=== PATIENT | male | born 1930 | race African-American/Black ===

== ENCOUNTER 2016-07-07 14:09 | Inpatient (IN) ==
[2016-07-07 14:44] LABS: Basophils % 0.1 % (0.0-0.8); Eosinophils % 0.1 % (0.00-10.9); Hemoglobin 14.8 GM/DL (14.0-18.0); Immature Granulocytes % 0.9 %; Immature Granulocytes Absolute 0.11 #; Lymphocytes # 0.6 10*3/uL (1.4-4.0); Lymphocytes % 4.4 % (21.2-54.2); Mean Corpuscular HGB Conc 30.8 GM/DL (32-36); Mean Corpuscular Hemoglobin 29 PG (27-34); Mean Corpuscular Volume 93.6 FL (87-102); Mean Platelet Volume 12.8 FL (9.6-12.0); Monocytes % 7.9 % (1.7-12.7); Neutrophils # 10.9 10*3/uL (1.4-7.4); Neutrophils % 86.6 % (38.7-73.9); Platelet Count 131 T/CUMM (130-400); Red Blood Count 5.13 MC/CUMM (3.8-5.5); Red Cell Distribution Width 15.9 % (9.3-17.3); White Blood Count 12.6 T/CUMM (4-12)
--- NOTE | 2016-07-07 14:52 | XRay Report ---
Referring Physician: Kirill Kenny Exam: XR chest 1V portable Date: July 07, 2016 at 2:33 PM Reason: Altered mental status Comparison: None Findings: The cardiac silhouette is normal in size, but the thoracic aorta is tortuous. No focal consolidation, pneumothorax or pleural effusion is identified. No acute osseous process is seen. Impression: No acute cardiopulmonary process is identified. PROCEDURE INTERPRETED AT [facility] DEPARTMENT OF RADIOLOGY Final Report Signed by: Dr. Mitchell Seth
[2016-07-07 14:55] LABS: Alanine Aminotransferase 33 U/L (16-61); Albumin 2.8 G/DL (3.4-5.0); Alkaline Phosphatase 104 U/L (45-117); Aspartate Amino Transferase 36 U/L (0-37); Blood Urea Nitrogen 83 MG/DL (7-18); Glucose 102 MG/DL (74-106); Magnesium 3.1 MG/DL (1.8-2.4); Osmolality,Calculated 353.6 MOS/KG (273-304); Potassium 3.7 MMOL/L (3.5-5.1); Total Protein 6.5 G/DL (6.4-8.3)
--- NOTE | 2016-07-07 14:55 | CT Report ---
History mental status changes, altered LOC There is diffuse atrophy. There is large amount of patchy and more confluent white matter low densities present with patchy low densities and chronic lacunes in the basal ganglia There is a 1 cm round low density in the left side of the samina. No acute intracranial hemorrhage or mass effect seen No acute cortical stroke identified Impression: 1. Large amount of chronic microvascular ischemic changes 2. Prominent diffuse atrophy. 3. 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 Clinical correlation requested The CT exam was performed using one or more of the following dose reduction techniques: Automated exposure control, adjustment of the mA and/or kV according to patient size, or use of iterative reconstruction technique. PROCEDURE INTERPRETED AT [facility] DEPARTMENT OF RADIOLOGY Final Report Signed by: Dr. Torri Wong
[2016-07-07 14:57] LABS: Sodium 167 MMOL/L (136-145)
[2016-07-07] MEDS ORDERED: SODIUM CHLORIDE 0.45% 1,000 ML IV ONE (15:01)
[2016-07-07 15:06] LABS: Apearance,Urine Slightly Hazy (Clear); Bacteria,Urine Occasional /HPF (Few); Bilirubin,Urine Negative (Negative); Blood, Urine Moderate mg/dL (Negative); Glucose,Urine (UA) Negative (Negative); Hyaline Casts,Urine 8 /LPF (0-3); Ketones,Urine Negative (Negative); Mucus,Urine Occasional /LPF (Occasional); Nitrite,Urine Negative (Negative); Protein,Urine Negative; RBC,Urine 29 /HPF (0-4); Squamous Epithelial Cell,Urine Occasional /HPF (0-10); Urine Color Amber (Yellow); Urine Specific Gravity 1.021 (1.001-1.035); WBC,Urine 3 /HPF (0-6)
[2016-07-07] MEDS ORDERED: ACETAMINOPHEN 325 MG TABLET PO PRN (15:06)
[2016-07-07] MEDS ORDERED: ONDANSETRON 4 MG/2 ML VIAL IV PRN (15:06)
[2016-07-07] MEDS ORDERED: DOCUSATE SODIUM 100 MG CAPSULE PO PRN (15:06)
--- NOTE | 2016-07-07 15:06 | Emergency Department Note ---
Oleksandr York Brooke, am scribing for, and in the presence of, Kirill Kenny MD 14:26. Zoya York Phillip K, MD, personally performed the services described in this documentation, ascribed by Arelis Leggett in my presence, and it is both accurate and complete 506 . Arrival - Arrival Chief Complaint: Altered Mental Status Stated Complaint: DECREASE PO INTAKE ED Nursing Triage Note: PT COMES FROM HOME WITH AMS AND SEVERE DEHYDRATION. PT HAS 4+ SKIN TENTING. PT QUIT EATING AND DRINKING SEVERAL DAYS AGO. PT REC'D ONE LITER NS BONUS CLERK PER EMS. PT HAS HX OF ALZHEIMERS Mode of Arrival: Stretcher Limitations: No Limitations Source: Patient, Family, RN Notes Reviewed Time Seen by Provider: 07/07/16 14:14 - History of Present Illness HPI Narrative: Patient is a 85 year old male brought into the ED by EMS with c/o altered mental status. Patient is a poor historian. Family says Patient will not respond to anything that she asks him to do. Family says Patient stopped talking about a week ago. She says he quit eating about two weeks ago and quit drinking about a week ago. She says he does not walk and sits in the recliner. Patient wears depends because he will not get up to go to the bathroom. Family denies Patient having any fever, vomiting, or diarrhea but has had a cough. Family says Patient does not have a history of CVA. She says its been a while since he was last hospitalized. She says he did recently go to the [facility] for seizures. Patient has PMHx of HTN and dementia. His Primary Care Provider is Dr. Phillips which is located at the [facility] in [place]. Onset (ago): week(s) Allergies/Adverse Reactions: Allergies Allergy/AdvReac Type Severity Reaction Status Date / Time No Known Allergies Allergy Unverified 08/11/14 21:28 Home Medications: Home Medications Medication Instructions Recorded Confirmed Type Unable To Obtain [Unable to Obtain] 08/11/14 08/11/14 History Review of System - Review of System ROS unobtainable: due to mental status 12 point system: reviewed and no additional remarkable complaints except as stated - Review of System Constitutional: Present: other (quit eating and drinking). Absent: fever Respiratory: Present: cough. Absent: respiratory distress Gastrointestinal: Absent: vomiting, diarrhea Skin: Absent: rash Neurological: Present: other (Patient not talking or following commands.) Medical,Surgical,& Family Hx - Medical History Cardio: History of: Hypertension Neurology: History of: Dementia - Social History Smoking Status: Unknown if ever smoked Exam Vital Signs: Vital Signs Temperature 97.1 F L 07/07/16 14:19 Pulse Rate 103 H 07/07/16 14:19 Respiratory Rate 16 07/07/16 14:19 Blood Pressure 103/71 07/07/16 14:19 O2 Sat by Pulse Oximetry 94 L 07/07/16 14:17 - General Exam limited due to: other (Not talking) General appearance: alert, in no apparent distress - Head Head exam: Present: atraumatic, normocephalic - Eye Eye exam: Present: normal appearance, PERRL, EOMI - ENT ENT exam: Present: normal exam - Neck Neck exam: Present: normal inspection - Chest Chest inspection: Present: normal inspection, symmetric chest wall rise - Respiratory Respiratory exam: Present: normal lung sounds bilaterally - Cardiovascular Cardiovascular exam: Present: normal rhythm, tachycardia, normal heart sounds - Abdominal Exam Abdominal exam: Present: soft, normal bowel sounds. Absent: distention, tenderness - Extremities Exam Extremities exam: Present: normal inspection - Back Exam Back exam: Present: normal inspection - Neurological Exam Neurological exam: Present: alert, other (Weakness in both upper and lower extremities. Left stroke program coordinator weaker than right.). Absent: oriented X3 - Psychiatric Psychiatric exam: Present: normal affect, normal mood - Skin Skin exam: Present: warm, dry, intact, normal color Course Course Narrative: Patient discussed with the hospitalist. Results - Labs CBC & BMP: 07/07/16 14:20 07/07/16 14:20 Lab Results: I have reviewed the patients labs Labs: Laboratory Tests 07/07/16 07/07/16 14:20 14:20 WBC 12.6 H MCHC 30.8 L MPV 12.8 H Neut % (Auto) 86.6 H Lymph % (Auto) 4.4 L Neut # (Auto) 10.9 H Lymph # (Auto) 0.[address] [place] # (Auto) 1.0 H Sodium 167 H* Chloride 130 H BUN 83 H Creatinine 3.10 H BUN/Creatinine Ratio 26.00 H Calculated Osmolality 353.6 H Magnesium 3.1 H Total Bilirubin 1.30 H Troponin I 0.070 H Albumin 2.8 L Globulin 3.7 H Albumin/Globulin Ratio 0.7 L - Diagnostic Findings Procedure: Chest x-ray: report reviewed by me (No acute cardiopulmonary process is identified.), CT: report reviewed by me (CT head/brain wo con: 1. Large amount of chronic microvascular ischemic changes. 2. Prominent diffuse atrophy. 3. 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 Clinical correlation requested.) Disposition Clinical Impression: Hypernatremia, Dehydration, Dementia, Cerebrovascular accident, old Case discussed with: patient's family Disposition: Still a Patient Condition: Guarded Additional Instructions: Admit to the hospitalist.
[2016-07-07] MEDS ORDERED: PANTOPRAZOLE 40 MG TABLET PO SCH (15:30)
--- NOTE | 2016-07-07 15:36 | Hospitalist History & Physical ---
Assessment and Plan - Time spent with patient Time spent with patient: Greater than 30 minutes (1) Encephalopathy Status: Acute Assessment and plan: Patient has metabolic encephalopathy secondary to his dehydration and hypernatremia. Will correct hypernatremia and volume resuscitate as noted below and follow his neuro status closely. We will have swallowing evaluation when he is cooperative prior to initiating a diet. Current Visit: Yes (2) Dehydration Status: Acute Assessment and plan: We will hydrate and correct sodium as noted. Current Visit: Yes (3) Hypernatremia Status: Acute Assessment and plan: Patient is severely hypernatremic secondary to volume contraction. We will volume resuscitate and then provide free water with correction of his sodium approximately 10 mEq/L during a 24-hour period. I am discontinuing his thiazide diuretics. Current Visit: Yes (4) Acute renal failure Status: Acute Assessment and plan: Patient is in acute renal failure likely secondary to volume contraction. Last creatinine noted in 2014 was 1.0. We will hydrate and correct electrolytes and follow his renal function closely. Current Visit: Yes (5) Seizure disorder Status: Chronic Assessment and plan: Patient has history of seizures controlled on Keppra. Will convert his Keppra to IV until his mental status allows us to convert back p.o. Current Visit: Yes (6) Dementia Status: Chronic Assessment and plan: Patient has a history of dementia. Continue his current medical regimen. Of note he was recently taken off his dementia meds, reason unknown at this time. Current Visit: Yes (7) Cerebrovascular accident, old Status: Acute Current Visit: Yes History of Present Illness Chief complaint: Not eating or drinking History of present illness: Mr. Mcfadden is a 85 year old -[place] male who lives with his niece in [place], with a history of hypertension, hyperlipidemia, dementia, seizure disorder who has not been eating or drinking over the past 4-5 days. His sister -in-law who is currently with him states that he is been fairly sedentary during this time either in bed or in a recliner. He does have underlying dementia and is baseline confusion and is not always cooperative however is been fairly lethargic over the past several days. There is no history from his family of fever, chills, chest pain, shortness breath, abdominal pain, nausea, vomiting, diarrhea, constipation, melena, hematochezia, hematemesis, dysuria, hematuria, urinary frequency urgency or incontinence. There has been no witnessed seizure activity in some time now. Further review of systems is otherwise unobtainable from the patient. Past medical history, past surgical history, social history, family history father comes from the old record or from his [id number]. His primary care provider [facility] in [place]. Home Medications Medication Instructions Recorded Confirmed Type Aspirin EC Tab 81 mg PO QAM 07/07/16 07/07/16 History Citalopram Hydrobromide 20 mg PO QAM 07/07/16 07/07/16 History [Citalopram HBr] Tamsulosin HCl [Tamsulosin HCl] 0.4 mg PO QPM 07/07/16 07/07/16 History Triamterene/Hydrochlorothiazid 0.5 each PO QAM 07/07/16 07/07/16 History [Triamterene-Hctz 37.5-25 mg Cp] levETIRAcetam [Levetiracetam] 500 mg PO BID 07/07/16 07/07/16 History Allergies Allergy/AdvReac Type Severity Reaction Status Date / Time No Known Allergies Allergy Unverified 08/11/14 21:28 Medical,Surgical,& Family Hx - Medical History Cardio: History of: Hypertension Neurology: History of: Dementia Endocrine: History of: Dyslipidemia - Surgical History Surgical History: noncontributory - Family History Family History: Denies;: Family Heart Disease - Social History Smoking Status: Unknown if ever smoked Frequency of Alcohol Use: None Type of Drug Use: None Marital Status: Single Lives With:: Niece ROS unobtainable: due to mental status 12 point system: reviewed and no additional remarkable complaints except as stated Exam - Constitutional General appearance: no acute distress - Head Head exam: Present: normocephalic, atraumatic - Eye Eye exam: Present: EOMI Pupils: Present: KARLO - ENT ENT exam: Present: other (Oral oropharynx is extremely dry) - Neck Neck exam: Present: normal inspection. Absent: lymphadenopathy, meningismus, tenderness, thyromegaly - Respiratory Respiratory exam: Present: clear to auscultation bilaterally. Absent: rales, rhonchi, wheezes - Cardiovascular Cardiovascular exam: Present: regular rate and rhythm. Absent: gallop, JVD, systolic murmur, tachycardia - GI/Abdominal GI/Abdominal exam: Present: normal bowel sounds, soft. Absent: distended, mass , tenderness, rebound - Extremities Exam Extremities exam: Absent: calf tenderness, edema - Back Exam Back exam: Present: normal inspection - Neurological Exam Neurological exam: Present: CN II-XII intact, other (He is lethargic, does not respond to verbal commands but does spontaneously move all extremities) - Psychiatric Psychiatric exam: Present: other (Lethargic, unresponsive to verbal command) - Skin Skin exam: Present: warm, dry, other (Poor skin turgor with significant tenting) . Absent: rash Results - Labs CBC & BMP: 07/07/16 14:20 07/07/16 14:20 Lab Results: I have reviewed the past 24 hour labs - EKG EKG shows: tachycardia, sinus rhythm - Diagnostic Findings Procedure: Chest x-ray: report reviewed by me, CT: report reviewed by me
[2016-07-07 15:43] LABS: Band Neutrophils 1 % (0-10); Lymphocytes 3 % (20-55); Segmented Neutrophils 92 % (50-85); Total Cells Counted 100
[2016-07-07 15:44] LABS: Burr Cells Few; Hypochromasia Slight; Platelet Estimate Decreased; Poikilocytosis Slight
[2016-07-07 15:45] LABS: Ammonia < 10 UMOL/L (11-32)
[2016-07-07] MEDS ORDERED: LORazepam 2 MG/1 ML VIAL IV PRN (15:49)
[2016-07-07] MEDS: PANTOPRAZOLE 40 MG VIAL IV SCH (18:57)
[2016-07-07] MEDS: ENOXAPARIN 30 MG/0.3 ML SYRINGE SUBCUT SCH (18:57)
[2016-07-07] MEDS: THIAMINE 200 MG/2 ML VIAL IV SCH (18:58)
[2016-07-07] MEDS: MULTIVITAMIN INJ 10 ML in DEXTROSE 5% 1,000 ML IV SCH (18:58)
[2016-07-07] MEDS: DEXTROSE 5% 1,000 ML IV SCH (20:51)
[2016-07-08 04:07] LABS: Basophils % 0.2 % (0.0-0.8); Eosinophils # 0.1 10*3/uL (0.0-0.87); Eosinophils % 1.2 % (0.00-10.9); Hematocrit 41.3 VOL% (42.0-52.0); Hemoglobin 12.6 GM/DL (14.0-18.0); Immature Granulocytes % 0.8 %; Immature Granulocytes Absolute 0.09 #; Lymphocytes % 8.8 % (21.2-54.2); Mean Corpuscular HGB Conc 30.5 GM/DL (32-36); Mean Corpuscular Hemoglobin 29 PG (27-34); Mean Corpuscular Volume 93.4 FL (87-102); Mean Platelet Volume 13.3 FL (9.6-12.0); Monocytes % 9.3 % (1.7-12.7); Neutrophils # 8.8 10*3/uL (1.4-7.4); Neutrophils % 79.7 % (38.7-73.9); Platelet Count 85 T/CUMM (130-400); Red Blood Count 4.42 MC/CUMM (3.8-5.5); Red Cell Distribution Width 15.8 % (9.3-17.3); White Blood Count 11.1 T/CUMM (4-12)
[2016-07-08 04:30] LABS: Albumin 2.4 G/DL (3.4-5.0); Bilirubin,Total 1.2 MG/DL (0.2-1.0); Calcium 8.4 MG/DL (8.5-10.1); Magnesium 2.9 MG/DL (1.8-2.4); Osmolality,Calculated 340.5 MOS/KG (273-304); Potassium 3.7 MMOL/L (3.5-5.1); Total Protein 5.8 G/DL (6.4-8.3)
[2016-07-08] MEDS: DEXTROSE 5% 1,000 ML IV SCH ×2 (05:33→17:53)
--- NOTE | 2016-07-08 07:28 | EKG Report ---
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
--- NOTE | 2016-07-08 08:48 | EKG Report ---
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
[2016-07-08] MEDS: PANTOPRAZOLE 40 MG VIAL IV SCH (08:55)
[2016-07-08] MEDS: THIAMINE 200 MG/2 ML VIAL IV SCH (08:59)
--- NOTE | 2016-07-08 09:25 | Hospitalist Progress Note ---
<Christie Pavon - Last Filed: 07/08/16 09:22> Assessment and Plan - Time spent with patient Time spent with patient: Less than 30 minutes (1) Hypernatremia Status: Acute Assessment and plan: pts NA is being corrected slowly. this am it is 161. cont w D5 at 100. this was most likely from severe dehydration. Current Visit: Yes (2) Dehydration Status: Acute Assessment and plan: dehydration causing hypernatremia which is slowly correcting w ivf Current Visit: Yes (3) Dementia Status: Chronic Assessment and plan: will continue his meds when he awakens further. for now iv meds have been ordered prn. Current Visit: Yes (4) Acute renal failure Status: Acute Assessment and plan: his renal failure most likely from dehydration. his creatinine is now 2.4. unsure of his baseline. cont gentle hydration. Current Visit: Yes (5) Seizure disorder Status: Chronic Assessment and plan: cont iv keppra until pt wakes up further and can take his po. Current Visit: Yes (6) Encephalopathy Status: Acute Assessment and plan: metabolic encephalopathy due to dehydration causing hypernatremia and acute renal failure. pt does have dementia as well. will cont to correct his Na slowly and renal failure should improve as well. once pt is more alert, will get him a diet. this has been discussed w dr dc. further recommendations to follow. Current Visit: Yes Hospitalist: Subjective Interval history: pt is sleeping soundly. will not open his eyes or converse but he will follow simple commands. his nephew is in the room and I spoke w another nephew on the phone. pt is a and requires 24h care at home. [facility] Exam - Constitutional Vitals: Period Temp Pulse Resp BP Sys/Mcneal Pulse Ox Last 24 Hr 97.8 F-99.0 F 89-97 14-20 98-124/48-71 91-100 Exam: 85AAM, thin, sleepy but will follow simple commands nephew in room chest clear cv rrr abd scaphoid, nt ext no edema Results - Labs CBC & BMP: 07/08/16 03:40 07/08/16 03:40 Lab Results: I have reviewed the past 24 hour labs <Hernesto Dc Jr. - Last Filed: 07/08/16 21:08> Assessment and Plan (1) Hypernatremia Status: Acute Assessment and plan: Continue with IV fluids. BMP in a.m. Current Visit: Yes (2) Dehydration Status: Acute Current Visit: Yes (3) Dementia Status: Chronic Current Visit: Yes (4) Cerebrovascular accident, old Status: Acute Current Visit: Yes (5) Acute renal failure Status: Acute Current Visit: Yes Hospitalist: Subjective Interval history: At this time continuing with current management for this patient. Exam - Constitutional Vitals: Period Temp Pulse Resp BP Sys/Mcneal Pulse Ox Last 24 Hr 98.2 F-99.0 F 68-95 12-20 98-120/48-77 93-96 Results - Labs CBC & BMP: 07/08/16 03:40 07/08/16 03:40
[2016-07-08] MEDS: MULTIVITAMIN INJ 10 ML in DEXTROSE 5% 1,000 ML IV SCH (16:59)
[2016-07-08] MEDS: ENOXAPARIN 30 MG/0.3 ML SYRINGE SUBCUT SCH (17:00)
[2016-07-09] MEDS: DEXTROSE 5% 1,000 ML IV SCH ×3 (00:20→20:20)
[2016-07-09 04:18] LABS: Calcium 8.4 MG/DL (8.5-10.1); Osmolality,Calculated 319.3 MOS/KG (273-304); Potassium 3.5 MMOL/L (3.5-5.1)
[2016-07-09] MEDS: PANTOPRAZOLE 40 MG VIAL IV SCH (09:18)
[2016-07-09] MEDS: THIAMINE 200 MG/2 ML VIAL IV SCH (09:20)
--- NOTE | 2016-07-09 09:45 | Hospitalist Progress Note ---
Assessment and Plan (1) Hypernatremia Status: Acute Assessment and plan: pts NA is being corrected slowly. this am it is 161. cont w D5 at 100. this was most likely from severe dehydration. 07/09/2016 patient's sodium is being corrected slowly. It is now down to 155 from 161 yesterday he is on D5 at 100. Continue this. Current Visit: Yes (2) Dehydration Status: Acute Assessment and plan: dehydration causing hypernatremia which is slowly correcting w ivf 07/09/2016 hypernatremia and elevated creatinine due to dehydration. Patient is slowly being corrected with sodium at 155 and creatinine down to 1.7 today. We will go ahead and start tube feeds since patient is not waking up enough to eat. Current Visit: Yes (3) Dementia Status: Chronic Assessment and plan: will continue his meds when he awakens further. for now iv meds have been ordered prn. Current Visit: Yes (4) Acute renal failure Status: Acute Assessment and plan: his renal failure most likely from dehydration. his creatinine is now 2.4. unsure of his baseline. cont gentle hydration. Patient's renal failure is improving. His creatinine is down to 1.7 today from 2.4 yesterday. We will continue to give patient D5 at 100 mils per hour. Current Visit: Yes (5) Seizure disorder Status: Chronic Assessment and plan: cont iv keppra until pt wakes up further and can take his po. Current Visit: Yes (6) Encephalopathy Status: Acute Assessment and plan: metabolic encephalopathy due to dehydration causing hypernatremia and acute renal failure. pt does have dementia as well. will cont to correct his Na slowly and renal failure should improve as well. once pt is more alert, will get him a diet. this has been discussed w dr dc. further recommendations to follow. 07/09/2016 patient has metabolic encephalopathy due to dehydration causing hypernatremia and acute renal failure. Patient does have dementia at his baseline from family members seems to be awake and alert and conversive at times. His sodium is slowly decreasing and his creatinine is slowly improving. Will initiate tube feeds today since patient is not taking anything p.o. in a while. We will recheck his labs in the morning. This is all been discussed with Dr. Dc. Further recommendations to follow Current Visit: Yes Hospitalist: Subjective Interval history: Patient is lying in bed and still sleepy. He will respond to verbal and tactile stimuli. He is trying to moan but I cant understand him and he will not open his eyes. Family is present and says that his baseline is awake and somewhat conversive at times. Exam - Constitutional Vitals: Period Temp Pulse Resp BP Sys/Mcneal Pulse Ox Last 24 Hr 98.2 F-99.4 F 68-97 12-20 104-120/60-80 93-97 Exam: 85-year-old cachectic -[place] male, sleepy and lethargic. Family member is present Chest clear CV regular rate and rhythm Abdomen scaphoid nontender Extremities with no edema Results - Labs CBC & BMP: 07/08/16 03:40 07/09/16 03:33 Lab Results: I have reviewed the past 24 hour labs
[2016-07-09] MEDS: ENOXAPARIN 40 MG/0.4 ML SYRINGE SUBCUT SCH (16:11)
[2016-07-09] MEDS: MULTIVITAMIN INJ 10 ML in DEXTROSE 5% 1,000 ML IV SCH (16:12)
[2016-07-10] MEDS: DEXTROSE 5% 1,000 ML IV SCH ×2 (06:33→17:15)
[2016-07-10 06:50] LABS: Basophils % 0.2 % (0.0-0.8); Eosinophils # 0.3 10*3/uL (0.0-0.87); Eosinophils % 4.1 % (0.00-10.9); Hematocrit 46.1 VOL% (42.0-52.0); Hemoglobin 14.8 GM/DL (14.0-18.0); Immature Granulocytes % 1.6 %; Lymphocytes # 1.1 10*3/uL (1.4-4.0); Lymphocytes % 16.6 % (21.2-54.2); Mean Corpuscular HGB Conc 32.1 GM/DL (32-36); Mean Corpuscular Hemoglobin 29 PG (27-34); Mean Corpuscular Volume 89.9 FL (87-102); Mean Platelet Volume 13.2 FL (9.6-12.0); Monocytes # 0.7 10*3/uL (0.11-0.8); Monocytes % 10.4 % (1.7-12.7); Neutrophils # 4.2 10*3/uL (1.4-7.4); Neutrophils % 67.1 % (38.7-73.9); Platelet Count 73 T/CUMM (130-400); Red Blood Count 5.13 MC/CUMM (3.8-5.5); Red Cell Distribution Width 15.1 % (9.3-17.3); White Blood Count 6.3 T/CUMM (4-12)
[2016-07-10 07:10] LABS: Calcium 7.9 MG/DL (8.5-10.1); Magnesium 2.4 MG/DL (1.8-2.4); Osmolality,Calculated 304.9 MOS/KG (273-304); Potassium 3.5 MMOL/L (3.5-5.1)
[2016-07-10 07:12] LABS: Eosinophils 1 % (0-10); Lymphocytes 14 % (20-55); Platelet Estimate Decreased; Polychromasia Slight; Segmented Neutrophils 82 % (50-85); Total Cells Counted 100
[2016-07-10] MEDS: PANTOPRAZOLE 40 MG VIAL IV SCH (08:32)
[2016-07-10] MEDS: THIAMINE 200 MG/2 ML VIAL IV SCH (08:33)
--- NOTE | 2016-07-10 11:56 | XRay Report ---
XR chest 1V portable Indication: Feeding tube placement. Chest one view: NG tube extends to left upper quadrant, tip directed towards the gastric fundus. Consider advancing 3-4 additional centimeters. The sidehole is below the GE junction. Impression: Nasogastric tube position as described. PROCEDURE INTERPRETED AT [facility] DEPARTMENT OF RADIOLOGY Final Report Signed by: Linus Guthrie M.D.
--- NOTE | 2016-07-10 15:25 | Hospitalist Progress Note ---
Assessment and Plan (1) Hypernatremia Status: Acute Assessment and plan: Continue hypotonic IV fluids and free water through NG tube. Current Visit: Yes (2) Dehydration Status: Acute Assessment and plan: Improving with IV fluids Current Visit: Yes (3) Dementia Status: Chronic Current Visit: Yes Qualifiers: Dementia type: Alzheimer's disease Alzheimer's disease onset: unspecified onset Dementia behavioral disturbance: without behavioral disturbance Qualified Code(s): G30.9 - Alzheimer's disease, unspecified; F02.80 - Dementia in other diseases classified elsewhere without behavioral disturbance (4) Acute renal failure Status: Acute Assessment and plan: Improving with IV fluids and volume replacement Current Visit: Yes Qualifiers: Acute renal failure type: unspecified Qualified Code(s): N17.9 - Acute kidney failure, unspecified (5) Encephalopathy Status: Acute Assessment and plan: Metabolic encephalopathy related to acute renal failure and hypernatremia. Current Visit: Yes Hospitalist: Subjective Interval history: Patient seen and examined. Family friend/neighbor at the bedside. Patient had NG tube placed today for nutrition and free water administration. KUB confirms placement. Patient still looks very dehydrated. His sodium is coming down. Exam - Constitutional Vitals: Period Temp Pulse Resp BP Sys/Mcneal Pulse Ox Last 24 Hr 98 F-99.9 F 76-84 18-20 91-131/43-66 96-99 Exam: Constitutional System: Mild distress. No tremulousness. Head: Normocephalic, atraumatic. Ears, Nose and Throat System: No pain or tenderness. No epistaxis or discharge. Mucous membranes dry Eyes System: Pupils equal, round, and reactive. Extraocular muscles intact. Neck: Supple, without adenopathy, No jugular venous distention. No thyromegaly, neck mass, or prior surgery apparent. Respiratory System: Chest clear to auscultation. Cardiovascular System: Heart with regular rate and rhythm. No murmur. GI System: Abdomen soft, nontender. Normo active bowel sounds present. Musculoskeletal System: limbs with no pedal edema. Full distal pulses. Neurological System: No discernable sensory deficit. No aphasia Psychiatric System: Conversation is rational Results - Labs CBC & BMP: 07/10/16 05:22 07/10/16 05:22 Lab Results: I have reviewed the past 24 hour labs
[2016-07-10] MEDS: MULTIVITAMIN INJ 10 ML in DEXTROSE 5% 1,000 ML IV SCH (17:13)
[2016-07-10] MEDS: ENOXAPARIN 40 MG/0.4 ML SYRINGE SUBCUT SCH (21:28)
[2016-07-11] MEDS: DEXTROSE 5% 1,000 ML IV SCH ×2 (04:38→13:04)
[2016-07-11 07:28] LABS: Calcium 7.6 MG/DL (8.5-10.1); Osmolality,Calculated 296.4 MOS/KG (273-304); Potassium 3.3 MMOL/L (3.5-5.1)
[2016-07-11 07:33] LABS: Magnesium 2.3 MG/DL (1.8-2.4); Phosphorous 2.4 MG/DL (2.5-4.9); Prealbumin 6.4 MG/DL (20-40)
[2016-07-11] MEDS: PANTOPRAZOLE 40 MG VIAL IV SCH (09:42)
[2016-07-11] MEDS: THIAMINE 200 MG/2 ML VIAL IV SCH (09:43)
[2016-07-11] MEDS: MULTIVITAMIN LIQUID (CENTRUM) 60 ML BOTTLE PEG SCH (10:11)
--- NOTE | 2016-07-11 10:40 | Hospitalist Progress Note ---
Assessment and Plan (1) Hypernatremia Status: Acute Assessment and plan: Continue hypotonic IV fluids and free water through NG tube. Current Visit: Yes (2) Dehydration Status: Acute Assessment and plan: Improving with IV fluids and free water flush Current Visit: Yes (3) Dementia Status: Chronic Current Visit: Yes Qualifiers: Dementia type: Alzheimer's disease Alzheimer's disease onset: unspecified onset Dementia behavioral disturbance: without behavioral disturbance Qualified Code(s): G30.9 - Alzheimer's disease, unspecified; F02.80 - Dementia in other diseases classified elsewhere without behavioral disturbance (4) Acute renal failure Status: Resolved Assessment and plan: Improving with IV fluids and volume replacement Current Visit: Yes Qualifiers: Acute renal failure type: unspecified Qualified Code(s): N17.9 - Acute kidney failure, unspecified (5) Encephalopathy Status: Acute Assessment and plan: Metabolic encephalopathy related to acute renal failure and hypernatremia. Current Visit: Yes Hospitalist: Subjective Interval history: Patient seen and examined. No acute events overnight. Family member at the bedside. Patient appears to be doing better today. Sodium down to 147. Creatinine normal. Potassium low and supplements ordered. Tube feeds initiated and patient tolerating well. Consult occupational therapy. Discharge planning for placement versus home with home health. Exam - Constitutional Vitals: Period Temp Pulse Resp BP Sys/Mcneal Pulse Ox Last 24 Hr 98.1 F-100.2 F 20-84 19-20 109-152/54-77 95-100 Exam: Constitutional System: Mild distress. No tremulousness. Head: Normocephalic, atraumatic. Ears, Nose and Throat System: No pain or tenderness. No epistaxis or discharge. Mucous membranes dry Eyes System: Pupils equal, round, and reactive. Extraocular muscles intact. Neck: Supple, without adenopathy, No jugular venous distention. No thyromegaly, neck mass, or prior surgery apparent. Respiratory System: Chest clear to auscultation. Cardiovascular System: Heart with regular rate and rhythm. No murmur. GI System: Abdomen soft, nontender. Normo active bowel sounds present. Musculoskeletal System: limbs with no pedal edema. Full distal pulses. Neurological System: No discernable sensory deficit. No aphasia Results - Labs CBC & BMP: 07/10/16 05:22 07/11/16 06:04 Lab Results: I have reviewed the past 24 hour labs
[2016-07-11] MEDS ORDERED: POTASSIUM CHLORIDE 20 MEQ/15 ML UDCUP PO ONE (12:00)
[2016-07-12] MEDS: ENOXAPARIN 40 MG/0.4 ML SYRINGE SUBCUT SCH (00:10)
[2016-07-12] MEDS: DEXTROSE 5% 1,000 ML IV SCH ×3 (02:12→02:13)
[2016-07-12 06:41] LABS: Calcium 7.7 MG/DL (8.5-10.1); Osmolality,Calculated 288.8 MOS/KG (273-304); Potassium 3.4 MMOL/L (3.5-5.1)
[2016-07-12] MEDS: THIAMINE 200 MG/2 ML VIAL IV SCH (09:12)
[2016-07-12] MEDS: MULTIVITAMIN LIQUID (CENTRUM) 60 ML BOTTLE PEG SCH (09:17)
[2016-07-12] MEDS: PANTOPRAZOLE 40 MG VIAL IV SCH (09:17)
--- NOTE | 2016-07-12 14:52 | Hospitalist Progress Note ---
Assessment and Plan (1) Hypernatremia Status: Acute Assessment and plan: Continue free water through NG tube along with TF Current Visit: Yes (2) Dehydration Status: Acute Assessment and plan: Improving with IV fluids and free water flush.- RESOLVED electrolytes and renal fxn have improved. Current Visit: Yes (3) Dementia Status: Chronic Current Visit: Yes Qualifiers: Dementia type: Alzheimer's disease Alzheimer's disease onset: unspecified onset Dementia behavioral disturbance: without behavioral disturbance Qualified Code(s): G30.9 - Alzheimer's disease, unspecified; F02.80 - Dementia in other diseases classified elsewhere without behavioral disturbance (4) Acute renal failure Status: Resolved Assessment and plan: Improving with IV fluids and volume replacement Current Visit: Yes Qualifiers: Acute renal failure type: unspecified Qualified Code(s): N17.9 - Acute kidney failure, unspecified (5) Encephalopathy Status: Acute Assessment and plan: Metabolic encephalopathy related to acute renal failure and hypernatremia. Current Visit: Yes Hospitalist: Subjective Interval history: Seen and examined. Sister in law at the bedside. We discussed the patient's long-term prognosis. His electrolyte have improved however his mental status has not. The patient has advanced stage dementia. He was nonverbal prior to admission and has not been eating or drinking well at home for the last several weeks leading to his dehydration and acute renal failure causing the admission. Consultation for gastroenterology has been placed for possible PEG tube placement. Exam - Constitutional Vitals: Period Temp Pulse Resp BP Sys/Mcneal Pulse Ox Last 24 Hr 98.6 F-100.2 F 75-87 15-22 103-142/52-66 91-100 General appearance: no acute distress Exam: Constitutional System: Mild distress. No tremulousness. Head: Normocephalic, atraumatic. Ears, Nose and Throat System: No pain or tenderness. No epistaxis or discharge. Mucous membranes dry Eyes System: Pupils equal, round, and reactive. Extraocular muscles intact. Neck: Supple, without adenopathy, No jugular venous distention. No thyromegaly, neck mass, or prior surgery apparent. Respiratory System: Chest clear to auscultation. Cardiovascular System: Heart with regular rate and rhythm. No murmur. GI System: Abdomen soft, nontender. Normo active bowel sounds present. Musculoskeletal System: limbs with no pedal edema. Full distal pulses. Neurological System: Opens eyes but does not follow commands. Results - Labs CBC & BMP: 07/10/16 05:22 07/12/16 05:30 Lab Results: I have reviewed the past 24 hour labs
[2016-07-12] MEDS ORDERED: POTASSIUM PHOSPHATE 15 MMOL in SODIUM CHLORIDE 0.9% 100 ML IV ONE (15:00)
--- NOTE | 2016-07-12 15:07 | Gastrointestinal Consult Note ---
<[place] Nation - Last Filed: 07/12/16 15:04> Assessment and Plan (1) Failure to thrive Status: Acute Assessment and plan: 07/12-Recent decline with refusal to eat/drink admitted with encephalopathy secondary to dehydration. Consult placed for possible PEG tube placement. Family to discuss and make decision to proceed prior to pt discharge to skilled facility. Plan and addendum to follow by Dr Mcdonough. Current Visit: Yes History of Present Illness Chief complaint: Failure to thrive History of present illness: Mr. Mcfadden is a 85 year old male who was admitted to the hospital with reports of refusal to eat or drink x several days. Pt is a poor historian. Information is obtained from sister in law at bedside and chart review. Pt lives at home with his niece however over the last several days he has refused to eat or drink anything. He has a history of seizure disorder, dementia and CVA in the past. Pt was mostly bed/chair bound prior to admission and required considerable assistance in his routine daily care. Over the last several days he is reported to have become more lethargic and uncooperative with family. He had no other reported complaints of prior to admission. Pt was brought to the ER and at that time found to have metabolic encephalopathy secondary to dehydration and hypernatremia. He has no known prior history of abdominal surgeries in the past. He is on no anticoagulant at this time. Home Medications Medication Instructions Recorded Confirmed Type Aspirin EC Tab 81 mg PO QAM 07/07/16 07/07/16 History Citalopram Hydrobromide 20 mg PO QAM 07/07/16 07/07/16 History [Citalopram HBr] Memantine [Namenda] 5 mg PO QAM 07/07/16 07/07/16 History Tamsulosin HCl [Tamsulosin HCl] 0.4 mg PO QPM 07/07/16 07/07/16 History Triamterene/Hydrochlorothiazid 0.5 each PO QAM 07/07/16 07/07/16 History [Triamterene-Hctz 37.5-25 mg Cp] levETIRAcetam [Levetiracetam] 500 mg PO BID 07/07/16 07/07/16 History Allergies Allergy/AdvReac Type Severity Reaction Status Date / Time No Known Allergies Allergy Unverified 08/11/14 21:28 Medical,Surgical,& Family Hx - Medical History Cardio: History of: Hypertension Psychological: History of: Depression Neurology: History of: Dementia, Seizures Endocrine: History of: Dyslipidemia Genitourinary: History of: Prostate Problems - Family History Family History: Denies;: Family Heart Disease - Social History Smoking Status: Unknown if ever smoked Frequency of Alcohol Use: None Type of Drug Use: None ROS unobtainable: due to mental status Exam - Constitutional Vitals: Period Temp Pulse Resp BP Sys/Mcneal Pulse Ox Last 24 Hr 98.6 F-100.2 F 75-87 15-22 103-142/52-66 91-100 General appearance: normal weight, no acute distress - Head Head exam: Present: normal inspection, normocephalic - Eye Eye exam: Present: other (lids and conjunctiva unremarakble). Absent: scleral icterus - ENT ENT exam: Present: normal exam, normal oropharynx - Neck Neck exam: Present: normal inspection - Respiratory Respiratory exam: Present: clear to auscultation bilaterally. Absent: rales, rhonchi, wheezes - Cardiovascular Cardiovascular exam: Present: regular rate and rhythm. Absent: diastolic murmur , JVD, systolic murmur - GI/Abdominal GI/Abdominal exam: Present: normal bowel sounds, soft. Absent: ascites, distended, mass, organomegaly, tenderness - Extremities Exam Extremities exam: Present: normal inspection, full ROM - Back Exam Back exam: Present: normal inspection - Neurological Exam Neurological exam: Present: alert, altered - Psychiatric Psychiatric exam: Present: other (lids and conjunctiva unremarkable) - Skin Skin exam: Present: normal color, warm, dry Results - Labs CBC & BMP: 07/10/16 05:22 07/12/16 05:30 Lab Results: I have reviewed the past 24 hour labs <Robbie Mcdonough - Last Filed: 07/12/16 18:34> History of Present Illness History of present illness: Mr. Mcfadden is a 85 year old male Exam - Constitutional Vitals: Period Temp Pulse Resp BP Sys/Mcneal Pulse Ox Last 24 Hr 98.6 F-100.2 F 75-87 15- 103-142/57-66 91-100 Results - Labs CBC & BMP: 07/10/16 05:22 07/12/16 05:30
[2016-07-13 08:01] LABS: Calcium 7.6 MG/DL (8.5-10.1); Osmolality,Calculated 293.6 MOS/KG (273-304); Potassium 3.7 MMOL/L (3.5-5.1)
[2016-07-13] MEDS: PANTOPRAZOLE 40 MG VIAL IV SCH (08:56)
[2016-07-13] MEDS: THIAMINE 200 MG/2 ML VIAL IV SCH (08:56)
[2016-07-13] MEDS: MULTIVITAMIN LIQUID (CENTRUM) 60 ML BOTTLE PEG SCH (08:57)
[2016-07-13] MEDS: SKIN HEALING OINT (AQUAPHOR) 50 GM TUBE TOP PRN (08:57)
--- NOTE | 2016-07-13 09:29 | Hospitalist Progress Note ---
Assessment and Plan (1) Hypernatremia Status: Acute Assessment and plan: Continue free water through NG tube along with TF. Resume D5W. Current Visit: Yes (2) Dehydration Status: Acute Assessment and plan: Improving with IV fluids and free water flush.- RESOLVED electrolytes and renal fxn have improved. PEG tube placement scheduled for tomorrow with Dr. Mcdonough. Current Visit: Yes (3) Dementia Status: Chronic Current Visit: Yes Qualifiers: Dementia type: Alzheimer's disease Alzheimer's disease onset: unspecified onset Dementia behavioral disturbance: without behavioral disturbance Qualified Code(s): G30.9 - Alzheimer's disease, unspecified; F02.80 - Dementia in other diseases classified elsewhere without behavioral disturbance (4) Acute renal failure Status: Resolved Assessment and plan: Improving with IV fluids and volume replacement Current Visit: Yes Qualifiers: Acute renal failure type: unspecified Qualified Code(s): N17.9 - Acute kidney failure, unspecified (5) Encephalopathy Status: Acute Assessment and plan: Metabolic encephalopathy related to acute renal failure and hypernatremia. Current Visit: Yes Hospitalist: Subjective Interval history: Patient seen and examined. No acute events overnight. PEG tube planned for tomorrow. Continue tube feedings. Resume IV fluids. N.p.o. after midnight. Plan for discharge home with family after PEG tube placement. Exam - Constitutional Vitals: Period Temp Pulse Resp BP Sys/Mcneal Pulse Ox Last 24 Hr 97.7 F-99.3 F 68-75 19-20 107-141/48-77 91-97 General appearance: no acute distress Exam: Constitutional System: Mild distress. No tremulousness. Head: Normocephalic, atraumatic. Ears, Nose and Throat System: No pain or tenderness. No epistaxis or discharge. Mucous membranes improved. Eyes System: Pupils equal, round, and reactive. Extraocular muscles intact. Neck: Supple, without adenopathy, No jugular venous distention. No thyromegaly, neck mass, or prior surgery apparent. Respiratory System: Chest clear to auscultation. Cardiovascular System: Heart with regular rate and rhythm. No murmur. GI System: Abdomen soft, nontender. Normo active bowel sounds present. Musculoskeletal System: limbs with no pedal edema. Full distal pulses. Neurological System: Opens eyes but does not follow commands. Results - Labs CBC & BMP: 07/10/16 05:22 07/13/16 06:59 Lab Results: I have reviewed the past 24 hour labs
--- NOTE | 2016-07-13 10:28 | Gastrointestinal Progress Note ---
<[place] - Last Filed: 07/13/16 10:24> Assessment and Plan (1) Failure to thrive Status: Acute Assessment and plan: 07/13-Family agrees to proceed with PEG placement. Will schedule this for tomorrow morning. Plan and addendum to follow by Dr Mcdonough. 07/12-Recent decline with refusal to eat/drink admitted with encephalopathy secondary to dehydration. Consult placed for possible PEG tube placement. Family to discuss and make decision to proceed prior to pt discharge to skilled facility. Plan and addendum to follow by Dr Mcdonough. Current Visit: Yes Gastroenterology - PN: Subj Interval history: CC: Failure to thrive Pt is seen awake, but does not respond to commands. Family at bedside. Family has agreed to proceed with PEG placement at this time. He has been tolerating her NG tube feedings well. Abdomen is soft, nontender. Will plan to proceed tomorrow morning. ROS: No acute distress Exam (Progress Note) - Constitutional Vitals: Period Temp Pulse Resp BP Sys/Mcneal Pulse Ox Last 24 Hr 97.7 F-99.3 F 68-75 19-20 107-141/48-77 91-97 General appearance: normal weight, no acute distress - Head Head exam: Present: normal inspection, normocephalic - Eye Eye exam: Present: other (lids and conjuncitva unremarkable). Absent: scleral icterus - ENT ENT exam: Present: normal exam, normal oropharynx - Neck Neck exam: Present: normal inspection - Respiratory Respiratory exam: Present: clear to auscultation bilaterally. Absent: rales, rhonchi, wheezes - Cardiovascular Cardiovascular exam: Present: regular rate and rhythm. Absent: diastolic murmur , JVD, systolic murmur - GI/Abdominal GI/Abdominal exam: Present: normal bowel sounds, soft. Absent: ascites, distended, mass, organomegaly, tenderness - Extremities Exam Extremities exam: Present: normal inspection, full ROM - Back Exam Back exam: Present: normal inspection - Neurological Exam Neurological exam: Present: alert, altered - Psychiatric Psychiatric exam: Present: normal affect, normal mood - Skin Skin exam: Present: normal color, warm, dry Results - Labs CBC & BMP: 07/10/16 05:22 07/13/16 06:59 Lab Results: I have reviewed the past 24 hour labs <Robbie Mcdonough - Last Filed: 07/13/16 19:16> Exam (Progress Note) - Constitutional Vitals: Period Temp Pulse Resp BP Sys/Mcneal Pulse Ox Last 24 Hr 96.6 F-99.3 F 63-76 16-22 104-133/46-76 94-98 Results - Labs CBC & BMP: 07/10/16 05:22 07/13/16 06:59
[2016-07-13] MEDS: DEXTROSE 5% 1,000 ML IV SCH (10:49)
--- NOTE | 2016-07-13 12:35 | Discharge Summary ---
Hospital Course - Hospital Course Hospital Course: Mr. Mcfadden is an 85-year-old male who was admitted to the hospital with hypernatremia and dehydration, acute renal failure and advanced dementia with metabolic encephalopathy. He lives with his niece in [place], with a history of hypertension, hyperlipidemia, dementia, seizure disorder who has not been eating or drinking over the past 4-5 days. His [id number] who is currently with him states that he is been fairly sedentary during this time either in bed or in a recliner. He does have underlying dementia and is baseline confusion and is not always cooperative however is been fairly lethargic over the past several days. There is no history from his family of fever, chills, chest pain , shortness breath, abdominal pain, nausea, vomiting, diarrhea, constipation, melena, hematochezia, hematemesis, dysuria, hematuria, urinary frequency urgency or incontinence. There has been no witnessed seizure activity in some time now. Further review of systems is otherwise unobtainable from the patient. Past medical history, past surgical history, social history, family history father comes from the old record or from his [id number]. [facility] [place]. He was admitted to the hospitalist service for IV fluids and nutrition via NG tube. His electrolytes improved and his renal function returned to normal. His end-stage dementia and metabolic encephalopathy are not improved significantly. A PEG tube placement was attempted by GI however was unsuccessful and a general surgery consult was placed. The patient was noted to have a high riding stomach. Dr. Moran saw the patient and placed a gastrostomy tube in the operating room. The patient tolerated the procedure well. He is currently receiving tube feeds through it. The patient has reached maximal benefit from this inpatient hospitalization and is being discharged home in the care of family members. They plan to take him home to a family member's house in [place]. He is awaiting [facility]. He remains a full code. - Time spent with patient Time with patient DS: Greater than 30 minutes (Total discharge time for this patient, including [id number] time, clinical documentation, medication reconciliation, and discharge planning was 42 minutes.) Diagnosis - Discharge Diagnosis (1) Hypernatremia Status: Resolved (2) Dehydration Status: Resolved (3) Dementia Status: Chronic (4) Acute renal failure Status: Resolved (5) Encephalopathy Status: Acute (6) Status post insertion of percutaneous endoscopic gastrostomy (PEG) tube Status: Acute Specialty Discharge - Follow Up or Referrals Follow up with: Darrian Verma MD [Physician] - 2 Weeks (Call office in am to make 2 week follow- up appointment for staple removal) Discharge Plan - Discharge Data Disposition: Home Health Service Condition at Discharge: Stable Discharge Diet: other (tube feeds) Activity: as per physical therapy Hygiene: no restrictions Contact your physician if you experience:: fever over 101, Nausea/Vomiting, Shortness of breath, Bleeding - Discharge Medications New Multivitamin Liquid (Centrum) [Centrum Liquid] 15 ml PEG DAILY bottle Continue Aspirin EC Tab 81 mg PO QAM Citalopram Hydrobromide [Citalopram HBr] 20 mg PO QAM levETIRAcetam [Levetiracetam] 500 mg PO BID Memantine [Namenda] 5 mg PO QAM Tamsulosin HCl 0.4 mg PO QPM Discontinued Triamterene/Hydrochlorothiazid [Triamterene-Hctz 37.5-25 mg Cp] 0.5 each PO QAM - Follow Up or Referral Follow Up: Darrian Verma MD [Physician] - 2 Weeks (Call office in am to make 2 week follow- up appointment for staple removal) - Forms/Instructions Exam - Constitutional Vitals: Period Temp Pulse Resp BP Sys/Mcneal Pulse Ox Last 24 Hr 97.7 F-99.3 F 63-75 19-22 107-141/46-77 94-98 Discharge Results Procedures and tests throughout hospitalization: Pending Orders 07/14/16 04:00 BMP [Basic Metabolic Panel] IN AM CBC [Comp Blood Count Auto Diff] IN AM Prothrombin Time INR IN AM Labs on day of discharge: Labs from last 24 hours 07/13/16 06:59 Sodium 146 H Potassium 3.7 Chloride 111 H Carbon Dioxide 26 Anion Gap 12.7 BUN 22 H Creatinine 1.30 GFR Calculation 59 BUN/Creatinine Ratio 16.00 Glucose 117 H Calculated Osmolality 293.6 Calcium 7.6 L DS: Provider Date of admission: 07/07/16 15:06 Primary care physician: . No PCP Attending physician on admission: Carolina Tate MD Consults: 07/07/16 15:16 Consult to Pharmacy [CONS] Routine Reason for Pharmacy Consult: Adjust Meds Renal Funct 07/07/16 18:17 Consult to Dietitian [CONS] Routine Reason for Dietitian: Other 07/09/16 09:44 Consult to Case Mgmt/Social Srvs [CONS] Routine Reason for Case Mgmt/Social Srvs: Swingbed/SNF/Skilled Nursing Consult Comment: [facility] 07/09/16 09:47 Consult to Dietitian [CONS] Routine Reason for Dietitian: TF-Initiate/Manage 07/11/16 10:37 Consult to Occupational Therapy [CONS] Routine Reason for Occupational Therapy: Evaluate and Treat Start Therapy: Tomorrow 07/12/16 14:55 Consult to Physician [CONS] Routine Comment: PEG tube placement Consulting Provider: Robbie Mcdonough Discharging clinician: Carolina Tate MD Expected date of discharge: 07/16/16
[2016-07-14 03:40] LABS: Basophils % 0.3 % (0.0-0.8); Eosinophils # 0.3 10*3/uL (0.0-0.87); Eosinophils % 4.4 % (0.00-10.9); Hematocrit 30.5 VOL% (42.0-52.0); Hemoglobin 10.2 GM/DL (14.0-18.0); Immature Granulocytes % 1.5 %; Lymphocytes % 14.7 % (21.2-54.2); Mean Corpuscular HGB Conc 33.4 GM/DL (32-36); Mean Corpuscular Hemoglobin 29 PG (27-34); Mean Corpuscular Volume 85.9 FL (87-102); Mean Platelet Volume 12.7 FL (9.6-12.0); Monocytes # 0.8 10*3/uL (0.11-0.8); Monocytes % 11.6 % (1.7-12.7); Neutrophils # 4.4 10*3/uL (1.4-7.4); Neutrophils % 67.5 % (38.7-73.9); Platelet Count 217 T/CUMM (130-400); Red Blood Count 3.55 MC/CUMM (3.8-5.5); Red Cell Distribution Width 15.1 % (9.3-17.3); White Blood Count 6.5 T/CUMM (4-12)
[2016-07-14 03:48] LABS: INR 1.1; PT Patient Result 11.3 SECS
[2016-07-14 04:10] LABS: Calcium 7.7 MG/DL (8.5-10.1); Potassium 3.6 MMOL/L (3.5-5.1)
[2016-07-14] MEDS: DEXTROSE 5% 1,000 ML IV SCH (09:42)
[2016-07-14] MEDS: THIAMINE 200 MG/2 ML VIAL IV SCH (09:43)
[2016-07-14] MEDS: PANTOPRAZOLE 40 MG VIAL IV SCH (09:43)
[2016-07-14] MEDS: SKIN HEALING OINT (AQUAPHOR) 50 GM TUBE TOP PRN (09:43)
--- NOTE | 2016-07-14 11:26 | Hospitalist Progress Note ---
Assessment and Plan (1) Encephalopathy Status: Acute Assessment and plan: Metabolic encephalopathy related to acute renal failure and hypernatremia has improved and the patient is back to baseline. Plan for discharge tomorrow. Current Visit: Yes (2) Hypernatremia Status: Resolved Assessment and plan: Continue free water through NG tube along with TF. Resume D5W. Current Visit: Yes (3) Dehydration Status: Resolved Assessment and plan: Improving with IV fluids and free water flush.- RESOLVED electrolytes and renal fxn have improved. PEG tube placement scheduled for tomorrow with Dr. Mcdonough. Current Visit: Yes (4) Dementia Status: Chronic Assessment and plan: This is advanced age with significant debility. Family is awaiting [facility]. Current Visit: Yes Qualifiers: Dementia type: Alzheimer's disease Alzheimer's disease onset: unspecified onset Dementia behavioral disturbance: without behavioral disturbance Qualified Code(s): G30.9 - Alzheimer's disease, unspecified; F02.80 - Dementia in other diseases classified elsewhere without behavioral disturbance (5) Acute renal failure Status: Resolved Assessment and plan: Improving with IV fluids and volume replacement Current Visit: Yes Qualifiers: Acute renal failure type: unspecified Qualified Code(s): N17.9 - Acute kidney failure, unspecified Hospitalist: Subjective Interval history: Patient scheduled for PEG tube placement today. Likely discharge home tomorrow. Case discussed with case management and patient's family at the bedside and power of deputy county attorney by phone. No acute events overnight. Exam - Constitutional Vitals: Period Temp Pulse Resp BP Sys/Mcneal Pulse Ox Last 24 Hr 96.6 F-99.2 F 73-79 13-22 104-139/49-72 90-100 Exam: Constitutional System: no distress. No tremulousness. Head: Normocephalic, atraumatic. Ears, Nose and Throat System: No pain or tenderness. No epistaxis or discharge. Eyes System: Pupils equal, round, and reactive. Extraocular muscles intact. Neck: Supple, without adenopathy, No jugular venous distention. No thyromegaly, neck mass, or prior surgery apparent. Respiratory System: Chest clear to auscultation. Cardiovascular System: Heart with regular rate and rhythm. No murmur. GI System: Abdomen soft, nontender. Normo active bowel sounds present. Musculoskeletal System: limbs with no pedal edema. Full distal pulses. Neurological System: Opens eyes but does not follow commands. Results - Labs CBC & BMP: 07/14/16 02:59 07/14/16 02:59 Lab Results: I have reviewed the past 24 hour labs
--- NOTE | 2016-07-14 12:01 | History and Physical Update ---
History and Physical Update - Physical Exam Mental Status: other (Dementia) Heart: regular rate and rhythm Lung: clear to auscultation Abdomen: within normal limits Vitals: within normal limits
--- NOTE | 2016-07-14 12:31 | Operative Note ---
Date of procedure: 07/14/16 Pre-op diagnosis: Malnutrition for PEG placement Procedure: EGD with unsuccessful PEG placement. 85-year-old gentleman with malnutrition poor p.o. intake request for PEG tube placement. Informed symptoms obtained from the family. Patient was sedated with MAC anesthesia per anesthesia protocol. Patient placed in supine position head at 30 Olympus flexible video upper endoscope was inserted oral cavity under direct vision the esophagus intubated. Findings: Esophagus-normal esophageal mucosa throughout. No varices no stricture no Harper's was identified. Stomach-normal insufflation. Atrophic appearing gastritis is present. No mass lesions are seen to direct retroflexed views of the body fundus cardia or antrum the stomach. Pylorus-normal Duodenum-normal the bulb and duodenum to the third portion of duodenum. Scope withdrawn back into the stomach and appropriate area was transilluminated on the anterior abdominal wall which was present in the very upper portion of the abdomen. An area of appropriate transillumination and needle localization was identified. The area was prepped and draped in sterile fashion. Scalpel incision was made through the skin and an 18-gauge Angiocath was attempted to be inserted in the stomach however we could never penetrate the stomach with the Angiocath to permit placement of the PEG tube. It appears he has a very high lying stomach and it is very mobile. After several attempts at inserting the needle of the procedure was abandoned. We continue to see good transillumination but are unable to manipulate the catheter into the stomach. Superglue was placed into the abdominal wound for closure. The procedure terminated placed our procedure well his discharge recovery in good condition. Postop diagnosis 1. Atrophic gastritis 2. Unsuccessful PEG tube placement due to inability to insert the needle into the stomach stopped due to suspected hyaline stomach. Will need to consider surgical placement of gastrostomy tube or jejunal feeding tube. Can reinsert NG tube for now for nutritional purposes. Anesthesia: MAC Surgeon / Physician: Robbie Mcdonough Estimated blood loss: none Specimens: none sent Condition: stable Disposition: post procedure unit Results - Labs CBC & BMP: 07/14/16 02:59 07/14/16 02:59 Discharge Plan - Discharge Data Disposition: Home Health Service - Discharge Medications New Multivitamin Liquid (Centrum) [Centrum Liquid] 15 ml PEG DAILY bottle Continue Aspirin EC Tab 81 mg PO QAM Citalopram Hydrobromide [Citalopram HBr] 20 mg PO QAM levETIRAcetam [Levetiracetam] 500 mg PO BID Memantine [Namenda] 5 mg PO QAM Tamsulosin HCl 0.4 mg PO QPM Discontinued Triamterene/Hydrochlorothiazid [Triamterene-Hctz 37.5-25 mg Cp] 0.5 each PO QAM - Follow Up or Referral - Forms/Instructions
[2016-07-14] MEDS ORDERED: ePHEDrine 50 MG/ML AMP ONE (12:37)
--- NOTE | 2016-07-14 13:51 | Anesthesia ---
Anesthesia Post OP - Post Ansesthetic Evaluation Patient seen in post op: Yes Resp: within normal limits CV: within normal limits Mental: within normal limits Temp: within normal limits [id number]: within normal limits Nausea and Vomiting: within normal limits Pain: within normal limits
[2016-07-14] MEDS: MULTIVITAMIN LIQUID (CENTRUM) 60 ML BOTTLE PEG SCH (15:47)
[2016-07-15] MEDS: DEXTROSE 5% 1,000 ML IV SCH (03:30)
--- NOTE | 2016-07-15 07:59 | General Surgery Consult Note ---
Assessment and Plan (1) Failure to thrive Status: Acute Assessment and plan: Impression: Failure to thrive, no by mouth intake Plan: Ms. Guicho Celestin was at bedside. Discussed placement of open gastrostomy tube in the operating room. I discussed the procedure and has not performed. Risk of the procedure including bleeding, infection, damage to surrounding structures , need for further surgery were all discussed in detail and she would like to proceed. Current Visit: Yes History of Present Illness Chief complaint: consult for open G-tube placement History of present illness: Mr. Mcfadden is a 85 year old male with encephalopathy, Alzheimer's and failure to thrive. He is approaching time for discharge and a PEG tube was ordered. Dr. Mcdonough was unable to cannulate the stomach and felt the stomach was high riding. Attempted PEG tube was aborted and I have been consult did for open G- tube placement. Patient's had no changes overnight. Home Medications Medication Instructions Recorded Confirmed Type Aspirin EC Tab 81 mg PO QAM 07/07/16 07/07/16 History Citalopram Hydrobromide 20 mg PO QAM 07/07/16 07/07/16 History [Citalopram HBr] Memantine [Namenda] 5 mg PO QAM 07/07/16 07/07/16 History Tamsulosin HCl 0.4 mg PO QPM 07/07/16 07/07/16 History levETIRAcetam [Levetiracetam] 500 mg PO BID 07/07/16 07/07/16 History Multivitamin Liquid (Centrum) 15 ml PEG DAILY bottle 07/13/16 Rx [Centrum Liquid] Allergies Allergy/AdvReac Type Severity Reaction Status Date / Time No Known Allergies Allergy Unverified 08/11/14 21:28 Medical,Surgical,& Family Hx - Medical History Cardio: History of: Hypertension Psychological: History of: Depression Neurology: History of: Dementia, Seizures Endocrine: History of: Dyslipidemia Genitourinary: History of: Prostate Problems - Family History Family History: Denies;: Family Heart Disease - Social History Smoking Status: Unknown if ever smoked Frequency of Alcohol Use: None Type of Drug Use: None 12 point system: reviewed and no additional remarkable complaints except as stated Exam - Constitutional Vitals: Period Temp Pulse Resp BP Sys/Mcneal Pulse Ox Last 24 Hr 97.6 F-99.7 F 65-92 13-24 55-143/34-72 92-100 General appearance: no acute distress - Head Head exam: Present: normocephalic - Neck Neck exam: Present: normal inspection - Respiratory Respiratory exam: Present: clear to auscultation bilaterally - Cardiovascular Cardiovascular exam: Present: RRR - GI/Abdominal GI/Abdominal exam: Present: soft (nontender nondistended) - Skin Skin exam: Present: normal color Results - Labs CBC & BMP: 07/14/16 02:59 07/14/16 02:59 Lab Results: I have reviewed the past 24 hour labs
[2016-07-15] MEDS: MULTIVITAMIN LIQUID (CENTRUM) 60 ML BOTTLE PEG SCH (08:00)
[2016-07-15] MEDS ORDERED: ceFAZolin 2,000 MG in PREMIX 1 EACH IV ONE (08:02)
[2016-07-15] MEDS: PANTOPRAZOLE 40 MG VIAL IV SCH (09:03)
[2016-07-15] MEDS: THIAMINE 200 MG/2 ML VIAL IV SCH (09:03)
--- NOTE | 2016-07-15 10:32 | Hospitalist Progress Note ---
Assessment and Plan (1) Encephalopathy Status: Acute Assessment and plan: Metabolic encephalopathy related to acute renal failure and hypernatremia has improved and the patient is back to baseline. Plan for discharge tomorrow. He has baseline severe dementia and is nonverbal Current Visit: Yes (2) Hypernatremia Status: Resolved Assessment and plan: Resolved with hydration. Current Visit: Yes (3) Dehydration Status: Resolved Assessment and plan: Improving with IV fluids and free water flush.- RESOLVED electrolytes and renal fxn have improved. PEG tube placement scheduled for tomorrow with Dr. Mcdonough. Current Visit: Yes (4) Dementia Status: Chronic Assessment and plan: This is advanced age with significant debility. Family is awaiting placement at [facility]. Current Visit: Yes Qualifiers: Dementia type: Alzheimer's disease Alzheimer's disease onset: unspecified onset Dementia behavioral disturbance: without behavioral disturbance Qualified Code(s): G30.9 - Alzheimer's disease, unspecified; F02.80 - Dementia in other diseases classified elsewhere without behavioral disturbance (5) Acute renal failure Status: Resolved Assessment and plan: Improving with IV fluids and volume replacement Current Visit: Yes Qualifiers: Acute renal failure type: unspecified Qualified Code(s): N17.9 - Acute kidney failure, unspecified Hospitalist: Subjective Interval history: Patient seen and examined. Surgery consult reviewed. The patient was unable to get the PEG tube placed by GI yesterday. I discussed the case at length with Dr. Mcdonough. Case discussed with nursing staff and patient's family member at the bedside. Plan for open G-tube placement today by general surgery. Exam - Constitutional Vitals: Period Temp Pulse Resp BP Sys/Mcneal Pulse Ox Last 24 Hr 97.6 F-99.7 F 65-92 13-24 55-139/34-72 92-100 Exam: Constitutional System: no distress. No tremulousness. Head: Normocephalic, atraumatic. Ears, Nose and Throat System: No pain or tenderness. No epistaxis or discharge. Eyes System: Pupils equal, round, and reactive. Extraocular muscles intact. Neck: Supple, without adenopathy, No jugular venous distention. No thyromegaly, neck mass, or prior surgery apparent. Respiratory System: Chest clear to auscultation. Cardiovascular System: Heart with regular rate and rhythm. No murmur. GI System: Abdomen soft, nontender. Normo active bowel sounds present. Musculoskeletal System: limbs with no pedal edema. Full distal pulses. Neurological System: Opens eyes but does not follow commands. Results - Labs CBC & BMP: 07/14/16 02:59 07/14/16 02:59 Lab Results: I have reviewed the past 24 hour labs
[2016-07-15] MEDS ORDERED: NEOSTIGMINE 10 MG/10 ML VIAL ONE (11:20)
[2016-07-15] MEDS ORDERED: GLYCOPYRROLATE 0.4 MG/2 ML VIAL ONE (11:20)
[2016-07-15] MEDS ORDERED: ROCURONIUM 100 MG/10 ML VIAL IV ONE (11:20)
[2016-07-15] MEDS ORDERED: KETOROLAC 30 MG/1 ML VIAL ONE (11:20)
[2016-07-15] MEDS ORDERED: PHENYLEPHRINE 1 MG/10 ML SYRINGE IV ONE (11:20)
[2016-07-15] MEDS ORDERED: ONDANSETRON 4 MG/2 ML VIAL ONE (11:20)
[2016-07-15] MEDS ORDERED: LIDOCAINE 2% 5 ML VIAL ONE (11:20)
[2016-07-15] MEDS ORDERED: ETOMIDATE 20 MG/10 ML VIAL IV ONE (11:20)
[2016-07-15] MEDS ORDERED: DEXAMETHASONE 10 MG/1 ML VIAL ONE (11:20)
[2016-07-15] MEDS ORDERED: BUPIVACAINE MPF 0.25% /EPI 30 ML VIAL ONE (12:03)
--- NOTE | 2016-07-15 12:26 | Anesthesia ---
Anesthesia Post OP - Post Ansesthetic Evaluation Patient seen in post op: Yes Resp: within normal limits CV: within normal limits Mental: within normal limits Temp: within normal limits [id number]-[id number]: within normal limits Nausea and Vomiting: within normal limits Pain: within normal limits
--- NOTE | 2016-07-15 13:59 | Operative Note ---
Date of procedure: 07/15/16 Pre-op diagnosis: failure to thrive, unable to take oral intake Post-op diagnosis: same Procedure: Procedure performed: Placement of gastrostomy tube Procedure in detail: After informed consent was obtained patient taken operating suite and laid supine on the operating table. After general anesthesia was induced the abdomen was prepped and draped in usual sterile fashion. After procedural pause small incision made in the epigastric area and dissection carried down through skin and soft tissue and fascia. Abdominal cavity was exposed and entered bluntly. The stomach did appear to be high riding but was able to be easily pulled out of the wound. A 24 [place] gastrostomy tube was brought through the previous incision made during attempts at PEG tube placement and gastrotomy performed. The tube placed directly into the stomach lumen and secured in place with a double row of pursestring 2-0 silk suture. The balloon was inflated and the tube retracted back up to the anterior abdominal wall where reached easily without any significant tension. It was secured to the anterior abdominal wall using 2-0 silk suture. The G- tube flange was then secured to the skin using 2-0 silk suture. Abdomen was irrigated and suction was good hemostasis. The fascia closed with #1 running looped PDS. Wound was irrigated and suction. Skin closed with marilou. Sterile dressings applied. Patient was extubated and taken recovery in stable condition. All lap and needle counts correct at the end of the case. Anesthesia: GETA Surgeon / Physician: Darrian Verma Estimated blood loss: other (less than 10 mL) Specimens: none sent Condition: stable Disposition: PACU Results - Labs CBC & BMP: 07/14/16 02:59 07/14/16 02:59 Discharge Plan - Discharge Data Disposition: Home Health Service - Discharge Medications New Multivitamin Liquid (Centrum) [Centrum Liquid] 15 ml PEG DAILY bottle Continue Aspirin EC Tab 81 mg PO QAM Citalopram Hydrobromide [Citalopram HBr] 20 mg PO QAM levETIRAcetam [Levetiracetam] 500 mg PO BID Memantine [Namenda] 5 mg PO QAM Tamsulosin HCl 0.4 mg PO QPM Discontinued Triamterene/Hydrochlorothiazid [Triamterene-Hctz 37.5-25 mg Cp] 0.5 each PO QAM - Follow Up or Referral - Forms/Instructions
[2016-07-16] MEDS: DEXTROSE 5% 1,000 ML IV SCH (00:56)
[2016-07-16] MEDS: THIAMINE 200 MG/2 ML VIAL IV SCH (08:57)
[2016-07-16] MEDS: PANTOPRAZOLE 40 MG VIAL IV SCH (08:58)
--- NOTE | 2016-07-16 09:50 | Event Note ---
Afebrile vital signs stable. Abdomen is soft and nondistended. Tube appears in place. We'll begin using the G-tube for his tube feeds. He can be discharged when he is tolerating it, maybe later today or tomorrow. Follow-up with me in 2 weeks. We'll put an abdominal binder on him so he cannot reach the tube.
[2016-07-16] MEDS: MULTIVITAMIN LIQUID (CENTRUM) 60 ML BOTTLE PEG SCH (11:45)
[2016-07-16 20:39] VITALS: BP 127/64
--- NOTE | 2016-07-18 10:35 | Event Note ---
Tube feed recommendations post discharge: Jevity 1.5 goal 6 cans/d for 2130 latrell, 91 g protein, 1080 ml free water. Rec 90 ml water pre/post feedings for total 2160 mls free water.
== END 2016-07-16 23:45 | disposition home health service (06) | DRG 981 ==
LOC: N.ED 14:09 → N.EDINP 15:06 → N.2E 15:32
PROVIDERS: ADMIT Family Medicine; ATTEND Family Medicine